=== PATIENT | female | born 1995 | race Caucasian/White ===

== ENCOUNTER 2017-05-13 15:17 | Emergency (ER) ==
[2017-05-13 15:22] VITALS: BP 149/85; TEMP 99; BMI 28.3
--- NOTE | 2017-05-13 16:25 | ED.PDOC ---
General ED Provider: Dr. ALEKS CAMERON Chief Complaint: Chest Wall Injury/Pain Stated Complaint: Lower chest and rib cage pain following blunt trauma due to sledding accident Time Seen by Physician: 16:10 Mode of Arrival: Walk-In Information Source: Patient Primary Care Provider: ALEKS MARLOW Nursing and Triage Documentation Reviewed and Agree: Yes Reviewed sepsis parameters & appropriate labs ordered?: Yes System Inflammatory Response Syndrome: Not Applicable Sepsis Protocol: For patient's 13 years and over: Temp is 96.8 and below OR 101 and greater Pulse >90 BPM Resp >20/minute Acutely Altered Mental Status Are patient's symptoms suggestive of a new infection, such as: -Pneumonia -Skin, Soft Tissue -Endocarditis -UTI -Bone, Joint Infection -Implantable Device -Acute Abdominal Infection -Wound Infection -Meningitis -Blood Stream Catheter Infection -Unknown System Inflammatory Response Syndrome: Not Applicable Trauma/Injury Complaint Exam - Truncal Trauma Complaint/Exam Location of Pain: Reports: Lower, Anterior, Posterior, Chest, Abdomen, Flank Symptoms Are: Still present Onset of Pain: Reports: Immediate Initial Severity: Moderate Current Severity: Mild Mechanism: Reports: Blunt trauma Aggravating: Reports: Movement Alleviating: Reports: Shallow breathing Associated Signs and Symptoms: Reports: Short of air, Chest pain. Denies: Cough , Hematuria, Nausea, Vomiting Related History: Reports: Similar episode Past Medical History - Past Medical History Previously Healthy: Yes Endocrine: Reports: None Cardiovascular: Reports: None, Unknown Respiratory: Reports: None Hematological: Reports: None Gastrointestinal: Reports: None Genitourinary: Reports: None Neuro/Psych: Reports: None Cancer: Reports: None Last Menstrual Period: 04/12/17 - Surgical History General Surgical History: Reports: Unknown - Family History Family History: Reports: Unknown - Social History Smoking Status: Never smoker Hx Substance Use: No Alcohol Screening: None - Immunizations Tetanus Shot up to Date: No Course - Course Orders, Labs, Meds: Lab Review 05/13/17 05/13/17 16:30 16:30 Urine Color Yellow Urine Clarity Clear Urine pH 6.5 Ur Specific [place] 1.010 Urine Protein Negative Urine Glucose (UA) Negative Urine Ketones Trace Urine Blood Negative Urine Nitrite Negative Urine Bilirubin Negative Urine Urobilinogen 0.2 Ur Leukocyte Esterase Negative Urine Test Negative Orders Category Date Time Status URINALYSIS C & S IF INDICATED Stat LAB 05/13/17 16:30 Completed URINE Stat LAB 05/13/17 16:30 Completed LUMBAR SPINE, 2 OR 3 VIEWS Stat RADS 05/13/17 16:23 Completed RIBS MASON., W/ PA CHEST MIN 4V Stat RADS 05/13/17 16:23 Completed Vital Signs: Temp Pulse Resp BP Pulse Ox 05/13/17 15:18 99.0 F 91 H 20 149/85 H 97 Departure - Departure Disposition: HOME SELF-CARE Discharge Problem: Contusion of rib on right side, Abdominal wall contusion Instructions: Rib Contusion (ED) Allergies/Adverse Reactions: Allergies amoxicillin Adverse Reaction (Verified 05/13/17 15:22) morphine Adverse Reaction (Verified 05/13/17 15:22) Home Medications: Ambulatory Orders Norgestimate-Ethinyl Estradiol [Trinessa Lo Tablet] 1 tab PO DAILY 05/13/17
--- NOTE | 2017-05-13 17:50 | DI ---
EXAM: Single view of the chest and six views of bilateral ribs. History: Chest and rib trauma. Findings: Heart size is normal. No focal consolidation. No appreciable pleural fluid and no pneumo thorax. No acute osseous abnormalities. Impression: Unremarkable exam
--- NOTE | 2017-05-13 17:51 | DI ---
EXAM: Four views of the lumbar spine. History: Lower back trauma. Findings: No acute fracture or subluxation. Disc space heights are preserved. Moderate colonic sto ol. Impression: No acute osseous abnormality.
== END 2017-05-13 18:08 | disposition home or self-care (01) ==
LOC: ED 15:17
DX: S30.1XXA Contusion of abdominal wall, initial encounter (principal); S20.20XA Contusion of thorax, unspecified, initial encounter; Y93.23 Activity, snow (alpine) (downhill) skiing, snowboarding, sledding, tobogganing and snow tubing
CPT/HCPCS: 81001; 81025; 99283